=== PATIENT | female | born 1995 | race Two or more races ===

== ENCOUNTER 2017-10-03 09:45 | Day surgery (SDC) | payer OTHER ==
[~2017-10-03] VITALS: Ht 152.4 cm; Wt 76.6 kg
[~2017-10-03 09:45] MED LIST: BIRTH CONTROL PILL; HYDR-3241 PO
[2017-10-03 10:28] VITALS: BP 118/79
[2017-10-03 11:16] LABS: MEAN CORPUSCULAR HEMOGLOBIN 19.7 pg (27.0-34.8); MEAN CORPUSCULAR HGB CONC 30.4 g/dL (32.4-35.8); MEAN CORPUSCULAR VOLUME 64.9 fL (80-100); MEAN PLATELET VOLUME 10.5 fL (7.4-10.4); PLATELET COUNT 423 x10^3/uL (130-400); RED BLOOD COUNT 3.74 x10^6/uL (3.82-5.3); RED CELL DISTRIBUTION WIDTH 20.5 % (9.6-15.2)
[2017-10-03 11:19] LABS: BASOPHILS # (AUTO) 0.18 x10^3/uL (0-0.1); BASOPHILS % (AUTO) 2 % (0-1); EOSINOPHILS # (AUTO) 0.15 x10^3/uL (0-0.4); EOSINOPHILS % (AUTO) 2 % (1-7); LYMPHOCYTES # (AUTO) 2.43 x10^3/uL (1-3.4); LYMPHOCYTES % (AUTO) 32 % (22-44); MD SCAN; MONOCYTES # (AUTO) 0.48 x10^3/uL (0.2-0.8); MONOCYTES % (AUTO) 6 % (2-9); NEUTROPHILS # (AUTO) 4.26 x10^3/uL (1.8-6.8); NEUTROPHILS % (AUTO) 57 % (42-75)
[2017-10-03] MEDS ORDERED: PROPOFOL 10 MG/ML, 20ML ONE (13:25)
[2017-10-03] MEDS ORDERED: ONDANSETRON 2MG/ML, 2ML ONE (13:25)
[2017-10-03] MEDS ORDERED: DEXAMETHASONE 4 MG/ML, 1ML ONE (13:25)
[2017-10-03] MEDS ORDERED: SUCCINYLCHOLINE 20 MG/ML, 10ML ONE (13:25)
[2017-10-03] MEDS ORDERED: MIDAZOLAM 1 MG/ML, 2ML ONE (13:27)
[2017-10-03] MEDS ORDERED: SILVER NITRATE STICK TP ONE (13:46)
[2017-10-03] MEDS ORDERED: hydrALAzine 20 MG/ML, 1ML IV PRN (14:00)
[2017-10-03] MEDS ORDERED: KETOROLAC 30 MG/1 ML IV PRN (14:00)
[2017-10-03] MEDS ORDERED: HYDROmorphone 1 MG/ML, 1ML IV PRN (14:00)
[2017-10-03] MEDS ORDERED: FENTANYL PF 100 MCG/2ML IV PRN (14:00)
[2017-10-03] MEDS ORDERED: MEPERIDINE/PF 25MG/0.5ML IVPush PRN (14:00)
[2017-10-03] MEDS ORDERED: ALBUTEROL SULFATE 2.5 MG/3 ML NPPB PRN (14:00)
[2017-10-03] MEDS ORDERED: LABETALOL 5MG/ML, 20ML IV PRN (14:00)
[2017-10-03] MEDS ORDERED: ONDANSETRON 2MG/ML, 2ML IVPush PRN (14:00)
[2017-10-03] MEDS ORDERED: PROMETHAZINE 25 MG/ML, 1ML IV PRN (14:00)
[2017-10-03] MEDS ORDERED: OXYcodone 5 MG/5 ML ORAL.SOL UDC PO PRN ×2 (14:00→15:30)
[2017-10-03] MEDS ORDERED: METOCLOPRAMIDE 5 MG/ML, 2ML IV PRN (14:00)
[2017-10-03] MEDS ORDERED: OXYcodone 5 MG/5 ML ORAL.SOL UDC ONE (14:07)
[2017-10-03] MEDS ORDERED: morphine SULFATE 10 MG/ML, 1ML IV PRN (15:30)
[2017-10-03] MEDS ORDERED: OXYcodone/APAP 5/325MG TABLET PO PRN (15:30)
[2017-10-03] MEDS ORDERED: IBUPROFEN 600 MG TABLET PO SCH (16:00)
[2017-10-03] MEDS ORDERED: OXYC-302 PO (17:30)
[2017-10-03] MEDS ORDERED: IBUP-1222 PO (17:31)
[2017-10-03] MEDS ORDERED: DOCU-131 PO (17:31)
[2017-10-03 17:45] VITALS: BP 101/60
== END 2017-10-03 17:50 | disposition home or self-care (01) ==
LOC: OR 09:45 → 4NOR 10:16 → OR 17:50
PROVIDERS: ATTEND Obstetrics & Gynecology
DX: N92.0 Excessive and frequent menstruation with regular cycle (principal); N93.9 Abnormal uterine and vaginal bleeding, unspecified; D50.9 Iron deficiency anemia, unspecified; Z90.49 Acquired absence of other specified parts of digestive tract; Z98.890 Other specified postprocedural states
CPT/HCPCS: 36415; 58120; 85025; 88305; J0330; J1100; J2250; J2405; J2704

== ENCOUNTER 2020-01-03 16:09 | Emergency (ER) | payer OTHER ==
[~2020-01-03] VITALS: Ht 152.4 cm; Wt 84.1 kg
[~2020-01-03 16:09] MED LIST changes: +DOCU-131 PO; +IBUP-1222 PO; +OXYC-302 PO
--- NOTE | 2020-01-03 17:01 | NUR ---
PT UPRIGHT ON GURNEY AWAKE & COMFORTABLE, RESPONDS APPROP TO STAFF, NAD, COMFORT MEASURES PROVIDED, FAMILY & LAB AT , AWAITING US, CALL LIGHT WITHIN REACH.
[2020-01-03 17:51] LABS: MICROSCOPIC NOT IND
--- NOTE | 2020-01-03 18:05 | NUR ---
PT RETURNED FROM US, UPRIGHT ON GURNEY AWAKE & COMFORTABLE, RESPONDS APPROP TO STAFF, NAD, COMFORT MEASURES PROVIDED, FAMILY AT BS, CALL LIGHT WITHIN REACH.
[2020-01-03 18:31] LABS: BASOPHILS % (AUTO) 1 % (0-1); EOSINOPHILS % (AUTO) 1 % (1-7); LYMPHOCYTES % (AUTO) 20 % (22-44); MEAN CORPUSCULAR HEMOGLOBIN 28.2 pg (27.0-34.8); MEAN CORPUSCULAR HGB CONC 33.1 g/dL (32.4-35.8); MEAN PLATELET VOLUME 10.5 fL (7.4-10.4); MONOCYTES % (AUTO) 6 % (2-9); NEUTROPHILS % (AUTO) 73 % (42-75); PLATELET COUNT 249 x10^3/uL (130-400); RED BLOOD COUNT 5.12 x10^6/uL (3.82-5.3)
[2020-01-03 18:38] LABS: ALBUMIN 4.2 g/dL (3.4-5.0); ANION GAP 8 mmol/L (5-15); CALCIUM 9.3 mg/dL (8.5-10.1); CHLORIDE 107 mmol/L (98-107)
[2020-01-03 18:39] LABS: MD NO
--- NOTE | 2020-01-03 19:03 | NUR ---
ISH BS REPORT FROM RICHY AYOUB TO ASSUME CARE OF PT. AT THIS TIME. MONITORS IN PLACE. X-RAY IN PROGRESS. ALL SAFETY MEASURES OBSERVED. NO DISTRESS NOTED.
--- NOTE | 2020-01-03 19:35 | NUR ---
REPORT TO RICHY SARMIENTO; THIS RN PRECEPTING.
[2020-01-03] MEDS ORDERED: OMNIPAQUE 350 MG/ML, 75ML BOTTLE ONE (20:48)
[2020-01-03 21:37] VITALS: BP 126/71
== END 2020-01-03 21:48 | disposition home or self-care (01) ==
LOC: ED 18:45
DX: N92.0 Excessive and frequent menstruation with regular cycle (principal); N83.01 Follicular cyst of right ovary
CPT/HCPCS: 36415; 71045; 71275; 76830; 80048; 81003; 82040; 84703; 85025; 85379; 99285; Q9967